=== PATIENT | male | born 1995 | race Two or more races ===

== ENCOUNTER 2019-03-10 07:46 | Outpatient (CLI) | payer OTHER | END 2019-03-10 23:59 | disposition home or self-care (01) | LOC: RAD 07:46 | PROVIDERS: ATTEND Physician Assistant Medical | DX: S83.111A Anterior subluxation of proximal end of tibia, right knee, initial encounter (principal); S83.511A Sprain of anterior cruciate ligament of right knee, initial encounter; X58.XXXA Exposure to other specified factors, initial encounter; Y93.89 Activity, other specified; Y92.89 Other specified places as the place of occurrence of the external cause; Y99.8 Other external cause status ==